=== PATIENT | male | born 1990 | race Two or more races ===

== ENCOUNTER 2025-03-24 19:48 | Emergency (ER) | payer MEDICAID ==
[~2025-03-24] VITALS: Ht 185.4 cm; Wt 126.4 kg
[2025-03-24 20:02] VITALS: TEMP 98.1
[2025-03-24 20:38] LABS: PLATELET COUNT (AUTO) 254 K/uL (150-450); RED BLOOD CELL COUNT(AUTO) 4.34 MIL/uL (4.50-5.90); RED CELL DISTRIBUTION WIDTH 13.2 % (11.5-14.5); WHITE BLOOD COUNT (AUTO) 10.5 K/uL (4.5-11.0)
[2025-03-24 20:40] LABS: APPEARANCE,URINE CLEAR (CLEAR); GLUCOSE, URINE (UA) NEGATIVE (NEGATIVE); LEUKOCYTE ESTERASE ,URINE NEGATIVE (NEGATIVE); NITRATE,URINE NEGATIVE (NEGATIVE); OCCULT BLOOD,URINE NEGATIVE (NEGATIVE); SPECIFIC GRAVITIY, URINE 1.029 (1.003-1.030)
[2025-03-24 20:46] LABS: CALCIUM, TOTAL 8.5 mg/dL (8.8-10.5); CREATININE 0.89 mg/dL (0.60-1.30); GLOMERULAR FILTR. RATE CALC > 60 mL/min (>60); GLUCOSE,RANDOM 107 mg/dL (70-110); SODIUM SERUM 142 mmol/L (136-145); UREA NITROGEN, BLOOD 31 mg/dL (7-18)
[2025-03-24 21:09] LABS: PH,URINE DRUG SCREEN 7.5 (5.0-8.0)
[2025-03-24] MEDS: PANTOPRAZOLE SODIUM 40 MG/VIAL IVP ONE (21:13)
[2025-03-24] MEDS: SODIUM CHLORIDE 0.9% 1,000 ML IV ONE (21:13)
[2025-03-24 21:17] LABS: ALCOHOL, URINE DRUG SCREEN NEGATIVE (NEGATIVE); AMPHET/METH SCREEN,URINE NEGATIVE (NEGATIVE); BARBITURATE SCREEN, URINE NEGATIVE (NEGATIVE); CANNABINOID SCREEN,URINE POSITIVE (NEGATIVE); COCAINE SCREEN,URINE NEGATIVE (NEGATIVE); METHADONE SCREEN, URINE NEGATIVE (NEGATIVE)
[2025-03-24 23:18] VITALS: BP 122/70; PULSE 104; RESP 16; O2SAT 98
== END 2025-03-24 23:23 | disposition short-term general hospital (02) ==
LOC: EMS 19:48
DX: K29.70 Gastritis, unspecified, without bleeding (principal); K92.0 Hematemesis; F12.90 Cannabis use, unspecified, uncomplicated; Z87.891 Personal history of nicotine dependence
CPT/HCPCS: 99285; 74176; 96374; 96361; 80048; 81003; 83690; 85025; 36415; 93005; 80307; J2470; J7030